=== PATIENT | male | born 1930 | race Caucasian/White ===

== ENCOUNTER → 2018-01-16 13:03 | Outpatient (CLI) | payer MEDICARE | END | disposition home or self-care (01) | LOC: D.RAD 13:03 | DX: R13.10 Dysphagia, unspecified (principal) ==

== ENCOUNTER → 2018-02-01 12:52 | Outpatient (CLI) | payer MEDICARE | END | disposition home or self-care (01) | LOC: D.RAD 12:52 | DX: R13.10 Dysphagia, unspecified (principal) ==